=== PATIENT | male | born 1955 | race Caucasian/White ===

== ENCOUNTER 2022-05-17 22:11 | Inpatient (IN) ==
[2022-05-17 22:42] LABS: Basophils # (auto) 0.05 K/uL (0-0.2); Basophils % (auto) 0.7 %; Eosinophils # (auto) 0.66 K/uL (0-0.50); Eosinophils % (auto) 9.4 %; Hematocrit (blood only) 42.9 % (40.1-51.0); Hemoglobin 14.6 g/dl (14.0-18.0); Immature Granulocytes # (auto) 0.01 K/uL (0.00-0.02); Immature Granulocytes % (auto) 0.1 %; Lymphocytes # (auto) 2.74 K/uL (1.2-3.4); Mean Corpuscular Hemoglobin 31.6 pg (25.0-34.0); Mean Corpuscular Volume 92.9 fL (80.0-100.0); Mean Platelet Volume 9.9 fL (9.4-12.4); Monocytes # (auto) 0.55 K/uL (0.24-0.82); Monocytes % (auto) 7.8 %; Neutrophils # (auto) 3.02 K/uL (1.4-6.5); Platelet Count 282 K/uL (130-400); RDW Coefficient of Variation 13.8 % (11.5-14.5); Red Blood Count 4.62 M/uL (4.63-6.08); White Blood Count 7.03 K/ul (4.8-10.8)
[2022-05-17] MEDS ORDERED: ASPIRIN 81 MG CHEW PO STA (22:57)
[2022-05-17] MEDS ORDERED: NITROGLYCERIN 2% OINTMENT 30GM TUBE EXT ONE (22:57)
--- NOTE | 2022-05-17 23:03 | Emergency Department Note ---
History of Present Illness General Chief complaint: Cardiac Assessment Stated complaint: CHEST TIGHTNESS/SHORT OF BREATH Time Seen by Provider: 05/17/22 22:38 History of Present Illness This is a 66-year-old male presenting to the emergency department for evaluation of chest tightness and heaviness of his arms x2 episodes the past 2 days. The patient believes himself to be usually healthy and does not typically follow with his doctors office. He did follow-up with them about a week ago when he had some URI symptoms and was started on Zithromax. He was also found to have some essential hypertension and started on low-dose lisinopril. He is taking his medications as prescribed, but when he laid down tonight he states that he developed new onset of symptoms. The patient does not report any known personal history of cardiac disease. When he was at his primary care physician's office this week he was noted to have an abnormal EKG and they are scheduling him an outpatient echo. The patient brother had a heart attack in his 50s, and the patient's mother had a fatal heart attack at 66 years old. The patient does not have any recent travel history. No fevers or chills. He does arrive via EMS. Home Medications Medication Instructions Recorded Confirmed Type ascorbic acid (vitamin C) 1,000 mg 1,000 mg PO Q12H 04/10/19 05/06/19 History tablet,extended release cephalexin 500 mg capsule 500 mg PO TID 7 days #21 caps 04/10/19 05/06/19 Rx finasteride 5 mg tablet 5 mg PO DAILY 04/10/19 05/06/19 History ibuprofen 200 mg tablet 200 mg PO Q6H PRN 04/10/19 05/06/19 History oxybutynin chloride 10 mg 10 mg PO DAILY 04/10/19 05/06/19 History tablet,extended release 24 hr psyllium seed (sugar) oral powder 1 tbs PO DAILY 04/10/19 05/06/19 History (Metamucil [place] oral powder) triamcinolone acetonide 0.1 % 1 appln topical BID #80 grams 04/10/19 05/06/19 Rx topical ointment Allergies Allergy/AdvReac Type Severity Reaction Status Date / Time No Known Allergies Allergy Verified 05/06/19 09:56 Past Med/Surg History Medical History Family history of heart disease Hypertension Surgical History No significant past surgical history Family History Other Colorectal cancer Diabetes Hypertension Social History Smoking Status: Former smoker Tobacco Type: Cigarettes Hx Alcohol Use: No Hx Substance Use: No Preferred Language: Japanese 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 Beliefs That Will Affect Care: None Current Living Situation: Alone Current Living Situation Comment: [facility] Feels Safe at Home: Yes Assistive Devices: Cane, Denture - Upper, Denture - Lower, Glasses and Walker Review of Systems A total of 10 systems reviewed and were otherwise negative Physical Exam Vital Signs Vital Signs - 24 hr 05/17/22 22:18 05/17/22 22:25 05/17/22 22:26 Temperature 36.9 C Temperature Source Oral Pulse Rate 75 Pulse Rate [Apical] Pulse Rate from SpO2 Sensor Pulse Rhythm [Apical] Pulse Strength [Apical] Respiratory Rate 18 Respiratory Effort / Characteristics Non-Labored Spontaneous Respiratory Depth Normal Respiratory Pattern Blood Pressure 149/88 H Blood Pressure [Left Arm] Blood Pressure Mean 108 Blood Pressure Mean [Left Arm] Blood Pressure Position [Left Arm] Pulse Oximetry 98 99 99 Oxygen Delivery Method Room Air Room Air Room Air Sepsis Recent Fever Within 48 Hours No Sepsis New/Unexplained Change in Mental Status No Sepsis Action Taken by Nursing No Action Required 05/17/22 23:21 05/18/22 00:00 05/18/22 00:30 Temperature 36.7 C Temperature Source Oral Pulse Rate 81 Pulse Rate [Apical] 77 84 Pulse Rate from SpO2 Sensor Pulse Rhythm [Apical] Regular Pulse Strength [Apical] Normal Respiratory Rate 20 18 20 Respiratory Effort / Characteristics Non-Labored Spontaneous Non-Labored Spontaneous Respiratory Depth Normal Normal Respiratory Pattern Regular Regular Blood Pressure 148/89 H Blood Pressure [Left Arm] 154/97 H 112/75 Blood Pressure Mean 108 Blood Pressure Mean [Left Arm] 116 87 Blood Pressure Position [Left Arm] Sitting Semi-fowlers Pulse Oximetry 98 98 95 Oxygen Delivery Method Room Air Room Air Room Air Sepsis Recent Fever Within 48 Hours Sepsis New/Unexplained Change in Mental Status Sepsis Action Taken by Nursing 05/17/22 22:30 05/17/22 22:45 05/17/22 23:00 Temperature Temperature Source Pulse Rate 79 70 75 Pulse Rate [Apical] Pulse Rate from SpO2 Sensor 78 71 76 Pulse Rhythm [Apical] Pulse Strength [Apical] Respiratory Rate 17 16 13 Respiratory Effort / Characteristics Respiratory Depth Respiratory Pattern Blood Pressure Blood Pressure [Left Arm] Blood Pressure Mean Blood Pressure Mean [Left Arm] Blood Pressure Position [Left Arm] Pulse Oximetry 99 98 96 Oxygen Delivery Method Sepsis Recent Fever Within 48 Hours Sepsis New/Unexplained Change in Mental Status Sepsis Action Taken by Nursing 05/17/22 23:15 05/17/22 23:21 05/17/22 23:21 Temperature Temperature Source Pulse Rate 71 79 Pulse Rate [Apical] Pulse Rate from SpO2 Sensor 72 80 Pulse Rhythm [Apical] Pulse Strength [Apical] Respiratory Rate 18 19 Respiratory Effort / Characteristics Respiratory Depth Respiratory Pattern Blood Pressure 154/97 H Blood Pressure [Left Arm] Blood Pressure Mean 116 Blood Pressure Mean [Left Arm] Blood Pressure Position [Left Arm] Pulse Oximetry 98 98 Oxygen Delivery Method Sepsis Recent Fever Within 48 Hours Sepsis New/Unexplained Change in Mental Status Sepsis Action Taken by Nursing 05/17/22 23:30 05/17/22 23:30 05/17/22 23:45 Temperature Temperature Source Pulse Rate 75 93 H Pulse Rate [Apical] Pulse Rate from SpO2 Sensor 75 93 H Pulse Rhythm [Apical] Pulse Strength [Apical] Respiratory Rate 18 21 Respiratory Effort / Characteristics Respiratory Depth Respiratory Pattern Blood Pressure 150/92 H Blood Pressure [Left Arm] Blood Pressure Mean 111 Blood Pressure Mean [Left Arm] Blood Pressure Position [Left Arm] Pulse Oximetry 98 98 Oxygen Delivery Method Sepsis Recent Fever Within 48 Hours Sepsis New/Unexplained Change in Mental Status Sepsis Action Taken by Nursing 05/18/22 00:00 05/18/22 00:00 Temperature Temperature Source Pulse Rate 79 Pulse Rate [Apical] Pulse Rate from SpO2 Sensor 80 Pulse Rhythm [Apical] Pulse Strength [Apical] Respiratory Rate 20 Respiratory Effort / Characteristics Respiratory Depth Respiratory Pattern Blood Pressure 148/89 H Blood Pressure [Left Arm] Blood Pressure Mean 108 Blood Pressure Mean [Left Arm] Blood Pressure Position [Left Arm] Pulse Oximetry 98 Oxygen Delivery Method Sepsis Recent Fever Within 48 Hours Sepsis New/Unexplained Change in Mental Status Sepsis Action Taken by Nursing VITALS: Vitals are noted on the nurse's note and reviewed by myself. Vital signs stable. GENERAL: Well-developed, well-nourished, white male, who is in no acute distress and resting comfortably. Patient is cooperative with the examination. HEAD: Normocephalic atraumatic. NECK: Supple without nuchal rigidity. No lymphadenopathy. No thyromegaly. Cervical spine is nontender. HEART: Regular rate and rhythm without murmurs gallops or rubs. LUNGS: Clear to auscultation bilaterally without wheezes, rales or rhonchi. No retractions or accessory muscle use. ABDOMEN: Positive normal bowel sounds x 4. Soft, nontender, without masses or organomegaly. No guarding or rebound tenderness. MUSCULOSKELETAL: No muscle atrophy, erythema, or edema noted. Full range of motion in all extremities. NEURO: Patient was alert and oriented to person place and time. CN II through XII grossly intact. Course Administered Medications Sodium Chloride (Nss 1000ml) 1,000 mls @ 75 mls/hr IV .[id number] [facility] Stop: 06/17/22 00:44 Last Admin: 05/18/22 02:58 Dose: 75 mls/hr Documented By: DARA Discontinued Medications Aspirin (Aspirin 81 Mg Chew) 324 mg PO NOW STA Stop: 05/17/22 22:58 Last Admin: 05/17/22 23:18 Dose: 324 mg Documented By: LINDA Fentanyl Citrate (Fentanyl Citrate 100 Mcg/2 Ml Vial) Confirm Administered Dose 100 mcg .ROUTE .STK-MED ONE Stop: 05/17/22 23:59 Last Increment: 05/18/22 00:42 Dose: 25 mcg Documented By: [facility] Heparin Sodium (Porcine) (Heparin (Porcine) 1000 Unit/Ml 10 Ml (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 Mold 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 Use Only)) Confirm Administered Dose 20,000 units .ROUTE .STK-MED ONE Stop: 05/17/22 23:59 Last Admin: 05/18/22 00:42 Dose: 5,000 units Documented By: C Heparin Sodium/Dextrose (Heparin 13797 Unit/500 Ml D5w) Confirm Administered Dose 25,000 units IV .STK-MED ONE Stop: 05/18/22 00:33 Last Admin: 05/18/22 02:57 Dose: Not Given Documented By: DARA Heparin Sodium/Sodium Chloride (Heparin In Nss Infusion 1000 Unit/500 Ml (2 U/Ml) Bag) Confirm Administered Dose 6,000 units IV .STK-MED ONE Stop: 05/17/22 23:59 Last Admin: 05/18/22 00:43 Dose: 6,000 units Documented By: SUZETTE Lidocaine HCl (Lidocaine 1% Local 20 Ml Vial) Confirm Administered Dose 80 ml .ROUTE .STK-MED ONE Stop: 05/18/22 00:45 Last Admin: 05/18/22 02:57 Dose: Not Given Documented By: DARA Midazolam HCl (Midazolam Hcl 1 Mg/Ml 2ml Vial) Confirm Administered Dose 4 mg .ROUTE .STK-MED ONE Stop: 05/17/22 23:59 Last Increment: 05/18/22 00:10 Dose: 1 mg Documented By: JESSICA Nicardipine HCl (Nicardipine Hcl Inj 2.5 Mg/Ml 10 Ml Amp) Confirm Administered Dose 50 mg .ROUTE .STK-MED ONE Stop: 05/17/22 23:59 Last Admin: 05/18/22 00:44 Dose: 50 mg Documented By: SUZETTE Nitroglycerin (Nitroglycerin 2% Ointment 30gm Tube) 1 inch EXT NOW ONE Stop: 05/17/22 22:58 Last Admin: 05/17/22 23:18 Dose: 1 inch Documented By: LINDA Nitroglycerin/Dextrose (Nitroglycerin/D5w 100mcg/Ml 20ml Syr) Confirm Administered Dose 4,000 mcg .ROUTE .STK-MED ONE Stop: 05/18/22 00:00 Last Admin: 05/18/22 00:44 Dose: 4,000 mcg Documented By: SUZETTE Nitroglycerin/Dextrose (Nitroglycerin/D5w 100 Mcg/Ml Btl) Confirm Administered Dose 25 mg .ROUTE .STK-MED ONE Stop: 05/18/22 00:33 Last Admin: 05/18/22 02:57 Dose: Not Given Documented By: DARA Critical Care Time I have personally spent greater than 30 minutes of critical care time in the direct management of this patient. This includes bedside care, interpretation of diagnostic studies, and testing, discussion with consultants, patient, and family members, and other required patient management activities. This 30 minutes is in excess of all separately billable procedures. Medical Decision Making Differential Diagnosis Differential diagnosis includes, but is not limited to: Myocardial infarction, dysrhythmia, pericarditis, pneumothorax, aortic aneurysm/dissection, DVT/PE, anxiety, GERD, PUD, electrolyte imbalance, thyroid disorder, pneumonia, bronchitis, pancreatitis, and others Laboratory Data Result diagrams: 05/18/22 02:16 05/18/22 02:16 Lab Results 05/17/22 05/17/22 05/17/22 Range/Units 22:21 22:21 22:33 WBC 7.03 (4.8-10.8) K/ul RBC 4.62 L (4.63-6.08) M/uL Hgb 14.6 (14.0-18.0) g/dl Hct 42.9 (40.1-51.0) % MCV 92.9 (80.0-100.0) fL MCH 31.6 (25.0-34.0) pg MCHC 34.0 (32.0-36.0) g/dL RDW Std Deviation 47.0 H (36.4-46.3) fL RDW Coeff of Nayla 13.8 (11.5-14.5) % Plt Count 282 (130-400) K/uL MPV 9.9 (9.4-12.4) fL Immature Gran % (Auto) 0.1 % Neut % (Auto) 43.0 % Lymph % (Auto) 39.0 % Pierce % (Auto) 7.8 % Eos % (Auto) 9.4 % Baso % (Auto) 0.7 % Neut # (Auto) 3.02 (1.4-6.5) K/uL Lymph # (Auto) 2.74 (1.2-3.4) K/uL Pierce # (Auto) 0.55 (0.24-0.82) K/uL Eos # (Auto) 0.66 H (0-0.50) K/uL Baso # (Auto) 0.05 (0-0.2) K/uL Immature Gran # (Auto) 0.01 (0.00-0.02) K/uL Sodium 138 (136-145) mmol/L Potassium 3.9 (3.5-5.1) mmol/L Chloride 106 (98-107) mmol/L Carbon Dioxide 26 (21-32) mmol/L Anion Gap 6 (3-11) BUN 17 (6-23) mg/dl Creatinine 0.73 (0.6-1.4) mg/dl Est Cr Clr Drug Dosing 105.6 ml/min Est GFR ( Amer) 113.6 ml/min Est GFR (Non-Af Amer) 98.0 ml/min BUN/Creatinine Ratio 23.3 H (10-20) Glucose 99 (70-99(Fasting)) mg/dl Calcium 9.3 (8.5-10.1) mg/dl Total Bilirubin 0.4 (0.2-1.0) mg/dl AST 16 (13-39) U/L ALT 10 (7-52) U/L Alkaline Phosphatase 69 (34-104) U/L Troponin I High Sens 325.6 H* (0-20) pg/ml Total Protein 7.0 (6.0-8.3) gm/dl Albumin 4.1 (3.4-5.0) gm/dl Globulin 2.9 (2.5-4.0) gm/dl Albumin/Globulin Ratio 1.4 (0.9-2) Lipase 22 (11-82) U/L SARS-CoV-2, RNA, NAAT NEGATIVE (NEGATIVE) ECG Data Attestation: I personally reviewed and interpreted this ECG as follows: Indication: + other (Chest tightness) Additional Comments: EKG #1: 17-MAY-2022 22:16:23 Normal sinus rhythm @78 bpm Possible Inferior infarct , age undetermined T wave depression in v3, v4, v5, consider anterior ischemia No previous ECGs available EKG #2: 17-MAY-2022 23:33:40 Normal sinus rhythm @79 bpm Anterior injury pattern ACUTE [place] / STEMI Acute ST elevation in v2, v3, and v4 new from first EKG MDM Narrative Physical exam and history were performed. Nursing notes, EMR, and Medication List were personally reviewed. No social concerns were identified as barriers to patients care. Patient appears to have chest tightness and heaviness in his bilateral arms bringing him to the ER. He arrives via EMS and appears hemodynamically stable on arrival. EKG was performed and does show some lateral depression without acute ST elevation. IV access was established and labs were obtained. The patient was given aspirin and Nitropaste was applied. Chest x-ray was performed. An order was placed for continuous cardiac monitoring. The monitor shows a rate of 78 with normal sinus rhythm. The patient's blood work is as above and was reviewed. He does not have a significantly elevated white blood cell count, gross anemia, bandemia, or significant electrolyte imbalance. Transaminases are not diagnostic. Initial troponin is elevated at over 300. Covid is negative. The patient did have change in his rhythm strip about 75 minutes into his ER stay. Repeat EKG was performed, and now shows an acute ST elevation [place]. Case was discussed with my attending, Dr. Qureshi, who remained involved in care decision making throughout the patient's course. We did evaluate the patient at bedside who does not have significant pain, but continues to describe some mild chest tightness although this is much better than earlier. Heart alert was called due to his evolving EKG and ST elevation findings. The patient remained in stable condition until interventional cardiology could arrive at bedside. Patient was discharged to the cardiac catheterization lab. Please see the cardiology team dictations for further patient course, plan, disposition. The chart was completed utilizing [employer] Speech Voice Recognition Software. Gr ammatical errors, random word insertions, pronoun errors, and incomplete sentences are an occasional consequence of this system due to software limitations, ambient noise, and hardware issues. Any formal questions or concerns about the content, text, or information contained within the body of this dictation should be directly addressed to the provider for clarification. . Impression & Plan ST elevation [place] (STEMI), Tightness in chest, Elevated troponin Discharge Plan Visit Data Chief Complaint: Cardiac Assessment Stated Complaint: CHEST TIGHTNESS/SHORT OF BREATH ED Provider: John Qureshi ED Midlevel Provider: Bo De La Cruz Discharge Problem: ST elevation [place] (STEMI), Tightness in chest, Elevated troponin Patient Disposition: Admitted As Inpatient Discharge Instructions Interventions: ED Discharge Assessment Last Done: 05/18/22 00:08
[2022-05-17 23:09] LABS: Albumin Globulin Ratio 1.4 (0.9-2); Albumin Level 4.1 gm/dl (3.4-5.0); BUN Creatinine Ratio 23.3 (10-20); Bilirubin,Total 0.4 mg/dl (0.2-1.0); Calcium 9.3 mg/dl (8.5-10.1); Creatinine Clr Calc Pharmacy 105.6 ml/min; Est GFR (African American) 113.6 ml/min; Globulin 2.9 gm/dl (2.5-4.0); Potassium 3.9 mmol/L (3.5-5.1)
[2022-05-17 23:14] LABS: Troponin I High Sensitivity 325.6 pg/ml (0-20)
--- NOTE | 2022-05-17 23:46 | Emergency Department Note ---
ED Visit Note Physician Evaluation Note: Patient was seen in conjunction with the midlevel provider. Please see the midlevel provider note for full details of the patient's visit. I have personally evaluated and examined this patient. Patient presented to the ED with nonspecific abnormal sensation in his chest, he describes this to me as a heaviness that he experienced multiple times over the past several days including this evening. He contacted EMS. EKG initially on arrival does not show any evidence of ST elevation [place], repeat EKG does show evidence of ST elevation in leads V2 and V3. Heart alert therefore was called by the physician instruction assistant principal at this time. On my assessment shortly after this the patient is resting comfortably in bed, states he currently does not have any chest pain. He was given aspirin and Nitro paste. Patient was transferred to the cardiac catheterization lab in stable condition for further management. I agree with assessment and plan of MICHAEL Esteban DO .
[2022-05-17] MEDS ORDERED: HEPARIN (PORCINE) 1000 UNIT/ML 10 ML (CATH LAB USE ONLY) ONE (23:58)
[2022-05-17] MEDS ORDERED: niCARdipine HCL INJ 2.5 MG/ML 10 ML AMP ONE (23:58)
[2022-05-17] MEDS ORDERED: fentaNYL citrate 100 MCG/2 ML VIAL ONE (23:58)
[2022-05-17] MEDS ORDERED: MIDAZOLAM HCL 1 MG/ML 2ML VIAL ONE (23:58)
[2022-05-17] MEDS ORDERED: NITROGLYCERIN/D5W 100MCG/ML 20ML SYR ONE (23:59)
[2022-05-18] MEDS ORDERED: NITROGLYCERIN/D5W 100 MCG/ML BTL ONE (00:32)
[2022-05-18] MEDS ORDERED: HEPARIN 25000 UNIT/500 ML D5W IV ONE (00:32)
[2022-05-18] MEDS ORDERED: LIDOCAINE 1% LOCAL 20 ML VIAL ONE (00:44)
[2022-05-18] MEDS ORDERED: SODIUM CHLORIDE 0.9% 1000ML 1,000 ML IV SCH (00:45)
--- NOTE | 2022-05-18 00:55 | Pre Anesthesia Assessment ---
Date of Service May 18, 2022 Pre Sedation Assessment Vital Signs Temp Pulse Pulse Resp BP BP Pulse Ox 05/18/22 00:00 81 18 148/89 H 98 05/17/22 23:21 77 20 154/97 H 98 05/17/22 22:26 99 05/17/22 22:25 99 05/17/22 22:18 36.9 C 75 18 149/88 H 98 O2 Del Method 05/18/22 00:00 Room Air 05/17/22 23:21 Room Air 05/17/22 22:26 Room Air 05/17/22 22:25 Room Air 05/17/22 22:18 Room Air Cardiovascular RRR, no murmur, no edema Respiratory normal respiratory effort, lungs clear to auscultation Pre-Sedation Airway Assessment Smoking Status: Former smoker Mallampati class 3 ASA: 4 Notes The planned sedation has been discussed with the patient. Informed Consent was obtained. I have identified the patient, determined the appropriateness of sedation and have assessed the patient immediately prior to the procedure. All medicine(s) and interventions are by my order.
--- NOTE | 2022-05-18 01:24 | Cardiac Catheterization ---
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 Cardiac Status Clinical evaluation leading to the procedure CAD Presenation: STEMI Anginal Classification: CCS IV Heart Failure: No Cardiogenic Shock within 24 Hours: No Cardiac Arrest within 24 Hours: No Imaging Studies Past 6 Months: No STEMI OR Non-STEMI Symptom Onset Date: 05/16/22 Coronary Anatomy Dominant: Right Left Main (% Stenosis): Distal (20%) LAD (% Stenosis): Proximal (40%) and Distal (90%, 95%, 99%) D1 (% Stenosis): Ostial (99%) Circumflex (% Stenosis): Proximal (80 to 90%) and Mid (50) OM1 (% Stenosis): Ostial (100) OM2 (% Stenosis): Normal (Diffuse severe up to 95%) RCA (% Stenosis): Proximal (Diffuse up to 95%) and Mid (Diffuse severe than 100% occluded) Ramus (% Stenosis): Proximal (80 to 90%) Diagnostic Physicians Name: Bo Gómez MD, PhD Closure Device Percutaneous Entry Location: Radial Closure Device: Radial Band Recommendations: CABG Cardiac Cath Procedure Full Procedure Date May 18, 2022 Pre-Procedure Diagnosis Pre-Procedure Diagnosis: STEMI AUC Score AUC Score: 09 Post-Procedure Diagnosis Post-Procedure Diagnosis: Severe CAD Procedure(s) Performed Procedure(s) Performed: Coronary Angiography Flux Tube Attendant Bo Gómez MD, PhD Estimated Blood Loss Estimated Blood Loss: 5 ml Summary of Findings Brief description: Patient was brought to the cardiac catheterization suite where he was shaved and prepped in a sterile fashion. Sedated using IV Versed and fentanyl. Soft tissues of the right wrist were anesthetized using 2 mL of 1% Xylocaine. The right radial artery was accessed using a modified Seldinger technique and a 6 Q[place]ari radial artery glide sheath was placed. Patient was provided anticoagulation with IV heparin and antispasmodics including nicardipine and nitroglycerin. All catheters were advanced and exchanged over a 0.035 J-tip wire. Left coronary angiography performed in orthogonal views with a 5 Q[place]ari Galena 4 diagnostic catheter and a 5 Q[place]ari JL 3.5 diagnostic catheter Right coronary angiography was performed in orthogonal views with a 5 [place] 4 diagnostic catheter. Diagnostic catheters were removed. Radial artery sheath was removed. Hemostasis was obtained using a TR band. Patient had no symptoms and was hemodynamically stable. He was subsequently admitted to the intensive care unit for further work-up and management. Coronary angiography findings: LMT: Large-caliber vessel which trifurcates into LAD, circumflex, and ramus. He has diffuse mild disease with up to 20% distal stenosis. LAD: This is large caliber and transapical. Proximal segment with diffuse up to 40% narrowing. Provides several septal branches and a medium to large caliber first diagonal. The first diagonal has ostial 99% stenosis and severe diffuse disease. The mid LAD has diffuse mild disease. The early distal LAD has a focal 90% stenosis followed by a 95% stenosis. The apical portion of the LAD has severe diffuse disease with up to 99% stenosis. Left circumflex: This is large caliber and nondominant. Proximal segment travels in the AV groove where there is severe 80 to 90% stenosis. The first obtuse marginal is relatively small in caliber and branching. It is occluded. The mid AV groove vessel remains large and has diffuse up to 50% narrowing. It then gives a large atrial branch. It appears to become a trifurcating large caliber OM 2. This vessel has diffuse disease with up to 95% narrowing focally in the 3 branch vessels. Ramus: This is a large caliber branching vessel which reaches near the apex. The proximal segment has a long 80 to 90% narrowing with the branch vessels after this having mild disease. RCA: Large-caliber dominant vessel. Proximal segment with severe diffuse disease of about 95% then the mid segment has continued severe disease before it is occluded 100%. The PDA and posterolateral branches appear to be along. They fill via left to right collateralization. Summary: Severe multivessel coronary artery disease. There do not appear to be any acute thrombotic lesions. Patient will be admitted to the intensive care unit to initiate heparin drip and nitroglycerin. When hemodynamically stabilized we will initiate guideline directed medical therapy for secondary prevention of coronary artery disease to include; low-dose aspirin, high intensity statin therapy, beta-gregory, plus or minus SIMON inhibitor/ARB. We will make referral to tertiary center regarding coronary artery bypass grafting versus complex multivessel staged PCI (heart team evaluation). Hemodynamics Rest Ao:: 119/75 mmHg, mean 79 mmHg Final Ao: 111/76 mmHg, mean 94 mmHg LV: Not performed Recommendations Recommendations: CABG Radiation Exposure (mGy) 1091 mGy, fluoroscopy time 2.0 minutes Contrast (mls) 90 mL Anesthesia 1 mg IV Versed, 25 mcg IV fentanyl Procedural Complication(s) None Disposition ICU I attest to the content of the Intraoperative Record and any orders documented therein. Any exceptions are noted below. [facility] Card Cath Procedure Codes Cardiac Catheterization Procedure 1: Cardiovascular Cath Procedures: 36351 Coronaries Moderate Sedation Procedure 1: Sedation/Anesthesia: 94670 Mod Sedation by the same physician;Init15 Min Child Age 5 & Up (13 minutes) PG Care Time/CCT Total # of Minutes Spent Total Time Spent with Patient: Total time spent is greater than 50% in coordination of care (as documented) at patient's floor/unit and/or counseling patient:
--- NOTE | 2022-05-18 01:30 | Critical Care Consultation ---
Date of Consultation May 18, 2022 Assessment & Plan (1) ST elevation RI (STEMI): Impression: 66-year-old male presents to the ICU following STEMI, status post heart catheterization with no intervention and found to have severe multivessel disease. Currently medically managing and will need transfer to tertiary center for possible CABG versus complex multivessel PCI. Neuro - [facility] ICU: Negative Cardiac - STEMIpatient with ST elevation on EKG in leads V1 to V4 on initial presentation with dyspnea, and pressure on chest. -Status post heart catheter he was found to have multivessel disease and will need work-up for CABG at tertiary center. -No PCI in favor of medical management. Currently on heparin drip and Nitropaste -Trend troponins for peak -Daily EKG -Follow-up echo -Cardiology consulting, appreciate recommendations -Continue ASA, statin, MTP -Continuous monitor on telemetry HTNstarting on MTP. Currently normotensive. Monitor Respiratory - No history of pulmonary disease, currently maintaining oxygen saturation on room air. Continuous monitoring pulse ox GI - Heart healthy diet RENAL/LYTES - Creatinine within normal limits. Monitor routine BMPs and maximize electrolytes - Strict I's and O's ENDO - No history of diabetes or thyroid disease, hemoglobin A1c pending. ICR vascular surgical HEME - H&H stable, monitor routine CBC ID - No negation for infectious process at this time LINES/IV ACCESS - Peripheral IVs DVT PROPHYLAXIS - SCDs, on heparin drip Thank you for allowing us to participate in the care of this patient. Please refer to my attending physician's documentation for any further recommendations. (2) Hypertension: (3) Atherogenic dyslipidemia: (4) Coronary artery disease: (5) Elevated troponin: History of Present Illness Attending Physician: Bo Gómez MD, PhD History of Present Illness Patient is a 66-year-old male who presented to the emergency department earlier as a heart alert. Patient reported shortness of breath intermittently along with squeezing in his arms and pressure in his chest over the past few days. This became significantly worse this evening and the patient called EMS. EKG demonstrated ST elevations in V1 through V4. Patient underwent cardiac catheterization which demonstrated severe multivessel coronary artery disease with no acute appearing lesions, and he did not undergo intervention. Patient's chest pain has since resolved and he has admitted to the ICU undergoing medical management with heparin drip. Plan for patient to be referred to tertiary center for CABG versus complex multivessel PCI per cardiology. On arrival to the ICU the patient is alert and oriented and is currently asymptomatic. He is hemodynamically stable and on room air. He does report having intermittent shortness of breath and pressure in his left and right arm along with some chest pain previously however this is resolved. He denies any recent illnesses, fevers, congestion, headache, syncope, cough or wheezing, abdominal pain, nausea vomiting or diarrhea, diaphoresis, swelling in hands or feet, changes in urinary frequency or hesitancy. Plan for patient to be admitt ed to ICU for close observation at this time. Allergies Allergy/AdvReac Type Severity Reaction Status Date / Time No Known Allergies Allergy Verified 05/06/19 09:56 Home Medications Medication Instructions Recorded Confirmed Type ascorbic acid (vitamin C) 1,000 mg 1,000 mg PO Q12H 04/10/19 05/06/19 History tablet,extended release cephalexin 500 mg capsule 500 mg PO TID 7 days #21 caps 04/10/19 05/06/19 Rx finasteride 5 mg tablet 5 mg PO DAILY 04/10/19 05/06/19 History ibuprofen 200 mg tablet 200 mg PO Q6H PRN 04/10/19 05/06/19 History oxybutynin chloride 10 mg 10 mg PO DAILY 04/10/19 05/06/19 History tablet,extended release 24 hr psyllium seed (sugar) oral powder 1 tbs PO DAILY 04/10/19 05/06/19 History (Metamucil [place] oral powder) triamcinolone acetonide 0.1 % 1 appln topical BID #80 grams 04/10/19 05/06/19 Rx topical ointment Patient History Medical History Family history of heart disease Hypertension Surgical History No significant past surgical history Family History Other Colorectal cancer Diabetes Hypertension Social History Smoking Status: Former smoker Tobacco Type: Cigarettes Hx Alcohol Use: No Hx Substance Use: No Preferred Language: Armenian 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 Ability: 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 Beliefs That Will Affect Care: None Current Living Situation: Alone Current Living Situation Comment: [facility] Feels Safe at Home: Yes Assistive Devices: Cane Review of Systems Review of Systems: All systems reviewed & are unremarkable except as noted in HPI & below Physical Exam Constitutional: WD/WN, vitals as above cooperative and comfortable; no acute distress Eyes: PERRL, conjunctivae normal, anicteric sclerae ENMT: external ear and nose normal, oropharynx normal Neck: trachea midline, no thyromegaly Respiratory: normal respiratory effort, lungs clear to auscultation Cardiovascular: RRR, no murmur, no edema Heart Sounds: normal S1 and normal S2 Vessels: no JVD Extremities: no edema Gastrointestinal (Abdomen): normal bowel sounds, soft, nontender, no hepatosplenomegaly Musculoskeletal: no cyanosis or clubbing, extremities motor strength 5/5 Skin: no rashes, warm and dry Neurologic: PERRL, EOMI, accommodation nl, no face palsy, no dysarthria Psychiatric: A+Ox3, euthymic affect Results & Data Results & Data ([facility]) Vital Signs (Past 12 Hours) Vital Signs Temp Pulse Pulse Resp BP BP Pulse Ox 05/18/22 01:00 36.9 C 82 19 134/80 96 05/18/22 00:00 81 18 148/89 H 98 05/17/22 23:21 77 20 154/97 H 98 05/17/22 22:26 99 05/17/22 22:25 99 05/17/22 22:18 36.9 C 75 18 149/88 H 98 O2 Del Method 05/18/22 01:00 Room Air 05/18/22 00:00 Room Air 05/17/22 23:21 Room Air 05/17/22 22:26 Room Air 05/17/22 22:25 Room Air 05/17/22 22:18 Room Air Coding Level of Care Code 15634 Inpt Consult Level [address] elevation RI (STEMI) I21.3 Hypertension I10 Atherogenic dyslipidemia E78.5 Coronary artery disease I25.10 Elevated troponin R77.8
[2022-05-18] MEDS ORDERED: HEPARIN SODIUM/DEXTROSE 25,000 UNITS/500 ML BAG IV SCH (01:45)
--- NOTE | 2022-05-18 01:46 | Cardiology Consultation ---
Date of Consultation May 18, 2022 Assessment & Plan (1) ST elevation NE (STEMI): Patient has severe multivessel coronary disease. The coronary angiography demonstrates severe disease near the apex in the LAD. The EKG changes show ST elevations corresponding to the LAD disease. However, these do not appear to be acute lesions and I suspect that he may have akinesis and/or aneurysmal LV apex which could cause the ST elevations with an absence of reciprocal ST depressions. We do plan an echocardiogram to investigate further. For now, we will treat medically with heparin drip, aspirin, and nitroglycerin as needed to relieve pain. His clinical presentation was rapidly progressive/unstable and sh ould he decompensate he could quickly become critically ill. Therefore, I feel intensive care unit management is appropriate at this time. (2) Hypertension: Blood pressure was initially low normal. Currently slightly improved. We are starting with nitroglycerin to control any recurrence of pain. After that we will initiate guideline directed medical therapy for secondary prevention of coronary disease as described below which will include antihypertensives. (3) Atherogenic dyslipidemia: Patient has severe multivessel coronary disease. He has very limited medical history but I suspect that he does not regularly follow with a physician. He may in fact have occult diabetes or other risk factors for coronary disease. In any case, the coronary disease places him at "high risk". Under current guidelines he is therefore recommended for high intensity statin therapy. We will obtain a baseline LDL and we will target reduction of that LDL number by 50% or more. We will also initiate a atorvastatin 40 mg daily. (4) Coronary artery disease: Severe multivessel disease. Suspect he has had milder symptoms for quite some time. Also suspect that his EF may be significantly reduced. His troponin was elevated but there are no acute lesions. We will trend his troponin. Ultimate revascularization will be either coronary artery bypass grafting or complex staged multivessel PCI. This will require referral to tertiary center with cardiac surgery and interventional cardiology services. We will initiate guide line directed medical therapy beginning with aspirin 81 mg daily, a atorvastatin 40 mg daily, and then metoprolol as tolerated by blood pressure and heart rate. If his ejection fraction is reduced as suspected and we will also recommend SIMON inhibitor/ARB/Entresto as tolerated by blood pressure. Plan ICU. Request transfer to tertiary center for CABG versus complex PCI. Complete work-up to include echocardiogram, identify additional risk factors and treat as appropriately. Adjust medications pending results and hopefully there will not be significant delay prior to transfer. History of Present Illness Reason for Consultation: Chest pain, ST elevations, positive troponin Attending Physician: Bo Gómez MD, PhD History of Present Illness 66-year-old gentleman without known prior cardiac history. He reports several weeks history of exertional shortness of breath and chest tightness. He reports that he had an EKG performed by his primary care provider which was "abnormal". She then ordered an echocardiogram which has not yet been performed. For the past few days he has noted squeezing in his arms, pressure across his chest, and dyspnea all occurring with exertion. Usually resolves with rest. However, became more severe this past evening and he decided to call EMS. An EKG was performed in the emergency department which demonstrated ST elevations in leads V1 through V4. There were no reciprocal ST segment depressions. He also had evidence of inferior Q waves suggestive of prior inferior infarction. He was treated by emergency department and on my arrival he was no longer having any symptoms. However, given the appearance of the EKG and the elevated troponin on blood work decision was made to proceed to the heart catheterization lab. Patient was provided full informed consent and he wished to proceed so that we could "fix him". Patient then underwent emergent cardiac catheterization demonstrating severe multi vessel coronary disease but without any acute appearing lesions. He had no chest pains and there were no ischemic EKG changes on the monitor. Therefore, decision was made to treat medically with plan for referral to tertiary center regarding coronary artery bypass grafting versus complex multivessel staged PCI. Patient admits to exertional chest pain, dyspnea, but denies syncope, near syncope, orthopnea, PND, racing heartbeat, palpitations, or edema. Allergies Allergy/AdvReac Type Severity Reaction Status Date / Time No Known Allergies Allergy Verified 05/06/19 09:56 Home Medications Medication Instructions Recorded Confirmed Type ascorbic acid (vitamin C) 1,000 mg 1,000 mg PO Q12H 04/10/19 05/06/19 History tablet,extended release cephalexin 500 mg capsule 500 mg PO TID 7 days #21 caps 04/10/19 05/06/19 Rx finasteride 5 mg tablet 5 mg PO DAILY 04/10/19 05/06/19 History ibuprofen 200 mg tablet 200 mg PO Q6H PRN 04/10/19 05/06/19 History oxybutynin chloride 10 mg 10 mg PO DAILY 04/10/19 05/06/19 History tablet,extended release 24 hr psyllium seed (sugar) oral powder 1 tbs PO DAILY 04/10/19 05/06/19 History (Metamucil [place] oral powder) triamcinolone acetonide 0.1 % 1 appln topical BID #80 grams 04/10/19 05/06/19 Rx topical ointment Patient History Medical History Family history of heart disease Hypertension Surgical History No significant past surgical history Family History Other Colorectal cancer Diabetes Hypertension Social History Smoking Status: Former smoker Tobacco Type: Cigarettes Hx Alcohol Use: No Hx Substance Use: No Preferred Language: Pashto 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 Ability: Effective Hand Tapper Required: No Beliefs That Will Affect Care: None Current Living Situation: Alone Current Living Situation Comment: [facility] Feels Safe at Home: Yes Assistive Devices: Cane Review of Systems Review of Systems: Negative x12 point review except as per HPI Physical Exam Constitutional: Cachectic, no acute distress. Eyes: PERRL, conjunctivae normal, anicteric sclerae ENMT: Oral mucosa is pink, moist, and intact. Neck: No JVD Respiratory: Clear to auscultation bilaterally. No wheezing, rhonchi, or rales appreciated. Fair air movement. Cardiovascular: Regular rate and rhythm. S4 gallop. No rubs or murmurs appreciated. Gastrointestinal (Abdomen): Normal active bowel sounds. Nontender Musculoskeletal: no cyanosis or clubbing, extremities motor strength 5/5 Neurologic: Cognition intact. Speech is fluent. No focal deficits. Psychiatric: A+Ox3, euthymic affect Results & Data ([facility]) Vital Signs (Past 12 Hours) Vital Signs Temp Pulse Pulse Resp BP BP Pulse Ox 05/18/22 01:00 36.9 C 82 19 134/80 96 05/18/22 00:00 81 18 148/89 H 98 05/17/22 23:21 77 20 154/97 H 98 05/17/22 22:26 99 05/17/22 22:25 99 05/17/22 22:18 36.9 C 75 18 149/88 H 98 O2 Del Method 05/18/22 01:00 Room Air 05/18/22 00:00 Room Air 05/17/22 23:21 Room Air 05/17/22 22:26 Room Air 05/17/22 22:25 Room Air 05/17/22 22:18 Room Air PG Care Time/CCT Total # of Minutes Spent Total Time Spent with Patient: Total time spent is greater than 50% in coordination of care (as documented) at patient's floor/unit and/or counseling patient: Critical Care Time: Yes Total Critical Care Time: 60 60 minutes critical care time was spent in the examination, review of records, discussion with patient, formulation and implementation of a plan of care, and all associated documentation. This time is exclusive of the time spent for his procedure. [place] [address] Inpt Consult Level [address] New [address] elevation NE (STEMI) I21.3 Hypertension I10 Atherogenic dyslipidemia E78.5 Coronary artery disease I25.10 Additional Codes Critical Care Time - Critical Care Time: Yes ([id number])
--- NOTE | 2022-05-18 01:47 | Post Anesthesia Assessment ---
Date of Service May 18, 2022 Post Sedation Assessment Vital Signs Temp Pulse Pulse Resp BP BP Pulse Ox 05/18/22 00:30 36.7 C 84 20 112/75 95 05/18/22 01:00 36.9 C 82 19 134/80 96 05/18/22 00:00 81 18 148/89 H 98 05/17/22 23:21 77 20 154/97 H 98 05/17/22 22:26 99 05/17/22 22:25 99 05/17/22 22:18 36.9 C 75 18 149/88 H 98 O2 Del Method 05/18/22 00:30 Room Air 05/18/22 01:00 Room Air 05/18/22 00:00 Room Air 05/17/22 23:21 Room Air 05/17/22 22:26 Room Air 05/17/22 22:25 Room Air 05/17/22 22:18 Room Air Recovery Score Activity: Moves 4 extremities Respiration: Deep Breath/Cough Circulation: +/-20% PreAnes Value Consciousness: Fully Awake Oxygen Saturation: > 92% On Room Air Discharge Sedation Level of Care: Phase I Post Sedation Plan On clinical assessment, the patient appears to have tolerated the sedation without complications. Patient is recovering as anticipated. Patient will continue to be monitored by nursing and may be discharged when sedation discharge criteria are met per below protocol. Upon Completions of procedure up to 15 minutes continue every 5 minute vital signs and the P.A.R. score; then discharge to a Phase I or Fast Track to Phase II per the following guidelines: * Discharge Patient to appropriate Phase II area if PAR is 8 or greater or return to pre- procedure baseline. The post - procedure orders will be as directed. * If PAR score is less than 8 or not return to pre-procedure baseline then patient will follow Phase I monitoring till PAR is reached for Phase II. The Phase I may be done in procedure room or may call to secure a Phase I area. * If naloxone or flumazenil are used for reversal, hold in Phase I for continued monitoring from when last reversal dose was given for a minimum of 60 minutes or longer pending the nurse and/or physician discretion of patient condition before discharge to Phase II. Please call the Sedation Physician to re-evaluate and complete post-note for discharge to Phase II area. Do NOT discharge from procedure sedation or Phase 1 until post- sedation evaluation note is complete by procedure /sedation MD Sedation Discharge Instructions to be given to the patient at discharge to home. [facility] Procedure Codes (Charges) Indication for Procedure Indication for procedure: STEMI Sedation/Anesthesia Procedure 1: Sedation/Anesthesia: 96628 Mod Sedation by the same physician;Init15 Min Child Age 5 & Up Total Sedation Time (minutes): 13
[2022-05-18 02:37] LABS: Basophils # (auto) 0.06 K/uL (0-0.2); Basophils % (auto) 0.9 %; Eosinophils # (auto) 0.26 K/uL (0-0.50); Eosinophils % (auto) 3.9 %; Hematocrit (blood only) 39.4 % (40.1-51.0); Hemoglobin 13.7 g/dl (14.0-18.0); Immature Granulocytes # (auto) 0.01 K/uL (0.00-0.02); Immature Granulocytes % (auto) 0.1 %; Lymphocytes # (auto) 1.29 K/uL (1.2-3.4); Lymphocytes % (auto) 19.2 %; Mean Corpuscular Hemoglobin 31.9 pg (25.0-34.0); Mean Corpuscular Hgb Conc 34.8 g/dL (32.0-36.0); Mean Corpuscular Volume 91.6 fL (80.0-100.0); Mean Platelet Volume 9.4 fL (9.4-12.4); Monocytes # (auto) 0.43 K/uL (0.24-0.82); Monocytes % (auto) 6.4 %; Neutrophils # (auto) 4.67 K/uL (1.4-6.5); Neutrophils % (auto) 69.5 %; Platelet Count 265 K/uL (130-400); RDW Coefficient of Variation 13.8 % (11.5-14.5); RDW Standard Deviation 46.5 fL (36.4-46.3); White Blood Count 6.72 K/ul (4.8-10.8)
[2022-05-18 03:13] LABS: INR 1.1 (0.9-1.1); Partial Thromboplastin Ratio 2.2; Prothrombin Time 11.6 Seconds (9.0-12.0)
[2022-05-18 03:16] LABS: Partial Thromboplastin Time 60.4 Seconds (21.0-31.0)
[2022-05-18 03:28] LABS: Troponin I High Sensitivity 732.8 pg/ml (0-20)
[2022-05-18 03:30] LABS: BUN Creatinine Ratio 18.3 (10-20); Calcium 8.4 mg/dl (8.5-10.1); Chol HDL Ratio 3.2 (0-5); Creatinine Clr Calc Pharmacy 108.5 ml/min; Est GFR (African American) 114.9 ml/min; Est GFR (Non-African American) 99.2 ml/min; Potassium 4.2 mmol/L (3.5-5.1)
[2022-05-18 05:33] LABS: Basophils # (auto) 0.05 K/uL (0-0.2); Basophils % (auto) 0.9 %; Eosinophils # (auto) 0.16 K/uL (0-0.50); Eosinophils % (auto) 2.9 %; Hematocrit (blood only) 38.4 % (40.1-51.0); Hemoglobin 13.1 g/dl (14.0-18.0); Immature Granulocytes # (auto) 0.01 K/uL (0.00-0.02); Immature Granulocytes % (auto) 0.2 %; Lymphocytes # (auto) 1.19 K/uL (1.2-3.4); Lymphocytes % (auto) 21.4 %; Mean Corpuscular Hemoglobin 31.3 pg (25.0-34.0); Mean Corpuscular Hgb Conc 34.1 g/dL (32.0-36.0); Mean Corpuscular Volume 91.6 fL (80.0-100.0); Mean Platelet Volume 9.6 fL (9.4-12.4); Monocytes # (auto) 0.37 K/uL (0.24-0.82); Monocytes % (auto) 6.7 %; Neutrophils # (auto) 3.77 K/uL (1.4-6.5); Neutrophils % (auto) 67.9 %; Platelet Count 259 K/uL (130-400); RDW Coefficient of Variation 13.8 % (11.5-14.5); RDW Standard Deviation 46.2 fL (36.4-46.3); Red Blood Count 4.19 M/uL (4.63-6.08); White Blood Count 5.55 K/ul (4.8-10.8)
[2022-05-18 05:59] LABS: Calcium 8.3 mg/dl (8.5-10.1); Creatinine Clr Calc Pharmacy 122.3 ml/min; Est GFR (African American) 120.7 ml/min; Est GFR (Non-African American) 104.1 ml/min; Magnesium 1.9 mg/dl (1.7-2.4); Phosphorus 3.2 mg/dl (2.5-4.9); Potassium 3.8 mmol/L (3.5-5.1)
[2022-05-18] MEDS: HEPARIN SODIUM/DEXTROSE 25,000 UNITS/500 ML BAG IV SCH ×2 (06:08→21:06)
[2022-05-18 06:37] LABS: Partial Thromboplastin Time 28.3 Seconds (21.0-31.0)
[2022-05-18] MEDS ORDERED: POTASSIUM CHLORIDE CRTAB 20 MEQ TABCR PO STA (06:49)
--- NOTE | 2022-05-18 06:55 | XRay Report ---
SINGLE VIEW CHEST CLINICAL HISTORY: Atypical chest pain. FINDINGS: 2 AP, portable, upright chest radiographs are obtained. No prior studies are available for comparison at the time of dictation. The cardiomediastinal silhouette is unremarkable. There is mild elevation of the right hemidiaphragm. The lungs and pleural spaces are clear. No pneumothorax is seen . The bony thorax is grossly intact. IMPRESSION: No acute cardiopulmonary abnormality is identified. ACT 112: Negative or not required by law. Electronically signed by: Sunny Carpenter M.D. 05/18/2022 6:53 AM
[2022-05-18 07:13] LABS: Estimated Average Glucose 97 mg/dl
[2022-05-18] MEDS: Heparin IV Adult Wt-Based Standard *NO* Bolus Protocol IV SCH ×2 (07:23→07:24)
[2022-05-18] MEDS: ICU Protocol for HYPERglycemia SCH ×3 (07:35→17:20)
[2022-05-18] MEDS: DOCUSATE SODIUM 100 MG CAP PO SCH ×2 (07:35→21:06)
[2022-05-18] MEDS: METOPROLOL TARTRATE 25 MG TAB PO SCH ×2 (07:35→21:06)
[2022-05-18] MEDS: PANTOprazole 40 MG TAB PO SCH (07:35)
[2022-05-18] MEDS: ASPIRIN 81 MG ECTAB PO SCH (07:35)
[2022-05-18] MEDS: ATORVASTATIN 40 MG TAB PO SCH (07:35)
[2022-05-18] MEDS: MAGNESIUM SULFATE / D5W 1 GM/100 ML BAG IV SCH ×2 (07:35→09:20)
--- NOTE | 2022-05-18 10:14 | XCELERA ---
[id number]
--- NOTE | 2022-05-18 12:56 | Electrocardiogram Report ---
Test Reason : Blood Pressure : / mmHG Vent. Rate : 078 BPM Atrial Rate : 078 BPM P-R Int : 188 ms QRS Dur : 088 ms QT Int : 392 ms P-R-T Axes : 059 -21 064 degrees QTc Int : 446 ms Poor data quality, interpretation may be adversely affected Normal sinus rhythm Inferior infarct , age undetermined T wave abnormality, consider anterior ischemia Abnormal ECG No previous ECGs available Confirmed by Antolin Paulino ([id number]) on 05/18/2022 12:56:49 PM Referred By: REFERRED SELF Confirmed By:Hector Paulino
--- NOTE | 2022-05-18 12:57 | Electrocardiogram Report ---
Test Reason : Blood Pressure : / mmHG Vent. Rate : 079 BPM Atrial Rate : 079 BPM P-R Int : 180 ms QRS Dur : 090 ms QT Int : 366 ms P-R-T Axes : 056 -15 070 degrees QTc Int : 419 ms Normal sinus rhythm Cannot rule out Inferior infarct (cited on or before 17-MAY-2022) Anterior injury pattern ACUTE [place] / STEMI Abnormal ECG When compared with ECG of 17-MAY-2022 22:16, (unconfirmed) ST elevation now present in Anterior leads Confirmed by Antolin aPulino ([id number]) on 05/18/2022 12:57:14 PM Referred By: REFERRED SELF Confirmed By:Hector Paulino
[2022-05-18 13:01] LABS: Partial Thromboplastin Ratio 2.4
--- NOTE | 2022-05-18 13:01 | Electrocardiogram Report ---
Test Reason : Blood Pressure : / mmHG Vent. Rate : 079 BPM Atrial Rate : 079 BPM P-R Int : 194 ms QRS Dur : 088 ms QT Int : 398 ms P-R-T Axes : 059 -27 099 degrees QTc Int : 456 ms Normal sinus rhythm Inferior infarct (cited on or before 17-MAY-2022) Abnormal ECG When compared with ECG of 17-MAY-2022 23:33, (unconfirmed) Evolution of acute NH Confirmed by Antolin Paulino ([id number]) on 05/18/2022 1:01:36 PM Referred By: REFERRED SELF Confirmed By:Hector Paulino
[2022-05-18 13:11] LABS: Partial Thromboplastin Time 66.1 Seconds (21.0-31.0)
--- NOTE | 2022-05-18 15:03 | History & Physical Report ---
Date of Service May 18, 2022 Assessment & Plan (1) ST elevation [place] (STEMI): Plan: Patient presented to the ER with above problem. Severe disease near the apex in the LAD noted in cardiac cath. Patient will continue on heparin drip. high sensitivity Trop: 918 (pea) now downtrending continue aspirin, metoprolol Will require transfer to tertiary center for CABG (2) Ischemic cardiomyopathy: Plan: decreased EF on echo, with wall motion abnormlaities currently will hold off add SIMON inhibitor or entresto until after revascularization completed at tertiary center (3) Hypertension: Plan: continue beta gregory, above goal, will monitor Admission and Anticipated Discharge Date Admission Date: May 18, 2022 History of Present Illness Chief Complaint: chest pain Primary Care Provider: JORGE Preciado This is a pleasant 66 yo male who is being admitted for chest pain. Patient went to the ER and was a heart alert. Patient reports pressure like nature in his chest with bilateral arm pain. Pain was intermittent, it was ongoing for past fe days, but getting worse. When patient arrived to the ED, patient had ST changes on anterior leads. Cardiology was consulted. Allergies Allergy/AdvReac Type Severity Reaction Status Date / Time No Known Allergies Allergy Verified 05/06/19 09:56 Home Medications Medication Instructions Recorded Confirmed Type ascorbic acid (vitamin C) 1,000 mg 1,000 mg PO Q12H 04/10/19 05/06/19 History tablet,extended release cephalexin 500 mg capsule 500 mg PO TID 7 days #21 caps 04/10/19 05/06/19 Rx finasteride 5 mg tablet 5 mg PO DAILY 04/10/19 05/06/19 History ibuprofen 200 mg tablet 200 mg PO Q6H PRN 04/10/19 05/06/19 History oxybutynin chloride 10 mg 10 mg PO DAILY 04/10/19 05/06/19 History tablet,extended release 24 hr psyllium seed (sugar) oral powder 1 tbs PO DAILY 04/10/19 05/06/19 History (Metamucil [place] oral powder) triamcinolone acetonide 0.1 % 1 appln topical BID #80 grams 04/10/19 05/06/19 Rx topical ointment aspirin 81 mg tablet,delayed 81 mg PO QAM #30 tabs 05/18/22 Rx release Past Med/Surg History Medical History Family history of heart disease Hypertension Surgical History No significant past surgical history Family History Other Colorectal cancer Diabetes Hypertension Social History Smoking Status: Former smoker Tobacco Type: Cigarettes Hx Alcohol Use: No Hx Substance Use: No Preferred Language: Thai 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 Ability: Effective Warehouse Processor Required: No Beliefs That Will Affect Care: None Current Living Situation: Alone Current Living Situation Comment: [facility] Feels Safe at Home: Yes Assistive Devices: Cane Review of Systems Constitutional: no fever and no body aches Eyes: no blind spots Ear, Nose, Mouth, Throat: no ear pain Respiratory: + dyspnea Cardiovascular: + chest pain Gastrointestinal: no abdominal pain Genitourinary: no dysuria Musculoskeletal: no back pain Integumentary: no acne Neurologic: no gait abnormality Psychiatric: no behavioral changes Endocrine: + fatigue Hematologic / Lymphatic: no easy bleeding Allergy / Immunological: no GI upset with certain foods Physical Exam Constitutional: WD/WN, vitals as above Eyes: PERRL, conjunctivae normal, anicteric sclerae ENMT: external ear and nose normal, oropharynx normal Neck: trachea midline, no thyromegaly Respiratory: normal respiratory effort, lungs clear to auscultation Cardiovascular: RRR, no murmur, no edema Gastrointestinal (Abdomen): normal bowel sounds, soft, nontender, no hepatosplenomegaly Musculoskeletal: no cyanosis or clubbing, extremities motor strength 5/5 Skin: no rashes, warm and dry Neurologic: PERRL, EOMI, accommodation nl, no face palsy, no dysarthria Psychiatric: A+Ox3, euthymic affect Lymphatic: no cervical or axillary lymphadenopathy Results & Data Results & Data ([facility]) Vital Signs (Past 12 Hours) Vital Signs Temp Pulse Pulse Resp BP BP Pulse Ox 05/18/22 11:28 76 05/18/22 09:00 76 19 96 05/18/22 09:00 100/62 05/18/22 08:00 75 18 96 05/18/22 08:00 111/58 L 05/18/22 07:00 76 96 05/18/22 07:00 107/67 05/18/22 06:45 71 16 95 05/18/22 08:00 81 05/18/22 06:00 81 17 96 05/18/22 06:00 108/67 05/18/22 05:50 81 19 95 05/18/22 05:40 76 17 95 05/18/22 05:30 78 18 92 05/18/22 06:00 73 12 108/67 94 05/18/22 05:20 76 18 94 05/18/22 05:10 80 16 96 05/18/22 05:00 77 14 96 05/18/22 05:00 115/65 05/18/22 04:50 94 H 24 95 05/18/22 04:40 80 15 94 05/18/22 04:30 82 16 96 05/18/22 04:20 76 18 94 05/18/22 04:10 80 23 94 05/18/22 04:00 74 20 93 05/18/22 04:00 99/61 L 05/18/22 03:50 78 16 95 05/18/22 03:45 97/58 L 05/18/22 03:45 85 17 95 05/18/22 03:40 88 17 96 05/18/22 03:30 80 20 95 05/18/22 03:30 97/62 L 05/18/22 03:20 81 21 93 05/18/22 03:15 110/64 05/18/22 03:15 80 15 95 05/18/22 03:10 83 20 94 05/18/22 05:00 36.5 C O2 Del Method 05/18/22 11:28 05/18/22 09:00 05/18/22 09:00 05/18/22 08:00 05/18/22 08:00 05/18/22 07:00 05/18/22 07:00 05/18/22 06:45 05/18/22 08:00 05/18/22 06:00 05/18/22 06:00 05/18/22 05:50 05/18/22 05:40 05/18/22 05:30 05/18/22 06:00 Room Air 05/18/22 05:20 05/18/22 05:10 05/18/22 05:00 05/18/22 05:00 05/18/22 04:50 05/18/22 04:40 05/18/22 04:30 05/18/22 04:20 05/18/22 04:10 05/18/22 04:00 05/18/22 04:00 05/18/22 03:50 05/18/22 03:45 05/18/22 03:45 05/18/22 03:40 05/18/22 03:30 05/18/22 03:30 05/18/22 03:20 05/18/22 03:15 05/18/22 03:15 05/18/22 03:10 05/18/22 05:00 Code Status & VTE Plan VTE Prophylaxis Plan VTE Prophylaxis will be ordered: Yes PG Care Time/CCT Total # of Minutes Spent Total Time Spent with Patient: Total time spent is greater than 50% in coordination of care (as documented) at patient's floor/unit and/or counseling patient: Coding Level of Care Code 01939 Initial Inpt Care Lvl [address] elevation TX (STEMI) I21.3 Ischemic cardiomyopathy I25.5 Hypertension I10
--- NOTE | 2022-05-18 16:01 | Cardiology Progress Note ---
Date of Service May 18, 2022 Assessment & Plan (1) Ischemic cardiomyopathy: Plan: Severe multivessel coronary disease. Mild to moderate LV systolic dysfunction (chronic). No evidence of volume overload at this time. Needs revascularization. Heart rate and blood pressure are currently well controlled. Continue metoprolol. Consider SIMON inhibitor/ARB/Entresto (cost may be an issue) but will wait until after surgery or PCI. Some surgeons prefer to hold these agents perioperatively. Furthermore, EF is reasonably well-preserved and therefore he does not have an absolute indication for these agents. (2) Coronary artery disease: Plan: Severe multivessel. Blood pressure and heart rate are currently at target. Guideline directed medical therapy with low-dose aspirin, high intensity statin therapy, and beta-gregory. He will remain on heparin drip for now. Sublingual nitroglycerin as needed for anginal relief. Has not required a nitroglycerin drip. (3) Atherogenic dyslipidemia: Plan: High risk. High intensity statin therapy is recommended. Target LDL reduction of greater than or equal to 50% of untreated baseline LDL. Currently on a atorvastatin 40 mg daily. (4) Hypertension: Plan: Blood pressure is at target. Continue metoprolol tartrate 25 mg p.o. twice daily. Nitroglycerin as needed. Additional titration of regimen pending evolution of his clinical course. Plan Patient has been accepted for transfer to [facility] in [place] for heart team evaluation and revascularization. Awaiting bed assignment. Admission and Anticipated Discharge Date Admission Date: May 18, 2022 Subjective Patient is feeling well this morning. He is seen in the ICU. No further anginal symptoms. No pain at the radial artery access site. No arrhythmia or other events overnight. I discussed with him his home situation. 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 He has a brother who can sometimes provide him with a ride. Patient has followed with a midlevel provider for his primary care needs but not regularly. We discussed recommendation for cardiac surgical evaluation given the extent of his severe coronary disease. We also discussed that should he not be a good surgical candidate (questionable quality of target vessels for bypass as well as a viability in the LAD dependent to myocardium) then complex multivessel PCI may be an option. I explained that his best outcome would be determined by a "heart team" evaluation. I also informed him that he would be best served by having a warning analyst in [place] which would improve his likelihood of follow-up, etc. I discussed with Dr. Beach who says that he would be happy to see him in [place]. I personally reviewed the echocardiogram this morning which demonstrated mildly to moderately reduced EF of 40 to 45%. Multiple wall motion abnormalities including severe hypokinesis to akinesis of the distal LAD territory myocardium/apex. This likely explains the ST elevations in the anterior leads without ischemic reciprocal changes. His troponin was modestly elevated compared to the severity of his coronary disease. He seemed to understand this to some degree and was interested in revascularization as soon as possible. He voices no other complaints. Review of Systems Review of Systems: Negative except as per HPI Physical Exam Constitutional: WD/WN, vitals as above Neck: No JVD Respiratory: Clear to auscultation bilaterally. No wheezing, rhonchi, or rales. Cardiovascular: RRR, no murmur, no edema (S4 gallop) Gastrointestinal (Abdomen): normal bowel sounds, soft, nontender, no hepatosplenomegaly Normal active bowel sounds. Musculoskeletal: no cyanosis or clubbing, extremities motor strength 5/5 (Right radial access site is clean dry and intact.) Neurologic: Cognition is intact. Speech is fluent. No focal deficits. Psychiatric: A+Ox3, euthymic affect Results & Data ([facility]) Vital Signs (Past 12 Hours) Vital Signs Temp Pulse Pulse Resp BP BP Pulse Ox 05/18/22 15:14 76 05/18/22 11:28 76 05/18/22 09:00 76 19 96 05/18/22 09:00 100/62 05/18/22 08:00 75 18 96 05/18/22 08:00 111/58 L 05/18/22 07:00 76 96 05/18/22 07:00 107/67 05/18/22 06:45 71 16 95 05/18/22 08:00 81 05/18/22 06:00 81 17 96 05/18/22 06:00 108/67 05/18/22 05:50 81 19 95 05/18/22 05:40 76 17 95 05/18/22 05:30 78 18 92 05/18/22 06:00 73 12 108/67 94 05/18/22 05:20 76 18 94 05/18/22 05:10 80 16 96 05/18/22 05:00 77 14 96 05/18/22 05:00 115/65 05/18/22 04:50 94 H 24 95 05/18/22 04:40 80 15 94 05/18/22 04:30 82 16 96 05/18/22 04:20 76 18 94 05/18/22 04:10 80 23 94 05/18/22 04:00 74 20 93 05/18/22 04:00 99/61 L 05/18/22 05:00 36.5 C O2 Del Method 05/18/22 15:14 05/18/22 11:28 05/18/22 09:00 05/18/22 09:00 05/18/22 08:00 05/18/22 08:00 05/18/22 07:00 05/18/22 07:00 05/18/22 06:45 05/18/22 08:00 05/18/22 06:00 05/18/22 06:00 05/18/22 05:50 05/18/22 05:40 05/18/22 05:30 05/18/22 06:00 Room Air 05/18/22 05:20 05/18/22 05:10 05/18/22 05:00 05/18/22 05:00 05/18/22 04:50 05/18/22 04:40 05/18/22 04:30 05/18/22 04:20 05/18/22 04:10 05/18/22 04:00 05/18/22 04:00 05/18/22 05:00 PG Care Time/CCT Total # of Minutes Spent Total Time Spent with Patient: Total time spent is greater than 50% in coordination of care (as documented) at patient's floor/unit and/or counseling patient: Prolonged Care Time Prolonged Care Time: Yes Total Prolonged Care Time: 60 I spent 60 minutes in review of records, examination of the patient, discussion with physicians here as well as with [facility] regarding transfer, formulation, coordination, and implementation of a plan of care, and documentation of all of the above. [place] [address] Subseq Hosp Care Lvl 3 Patient Type Established Diagnoses Ischemic cardiomyopathy I25.5 Coronary artery disease I25.10 Atherogenic dyslipidemia E78.5 Hypertension I10 Additional Codes Prolonged Care Time - Prolonged Care Time: Yes ([id number])
[2022-05-19 05:32] LABS: Basophils # (auto) 0.05 K/uL (0-0.2); Basophils % (auto) 0.7 %; Eosinophils # (auto) 0.51 K/uL (0-0.50); Hematocrit (blood only) 38.4 % (40.1-51.0); Immature Granulocytes # (auto) 0.02 K/uL (0.00-0.02); Immature Granulocytes % (auto) 0.3 %; Lymphocytes # (auto) 2.19 K/uL (1.2-3.4); Lymphocytes % (auto) 30.1 %; Mean Corpuscular Hemoglobin 31.6 pg (25.0-34.0); Mean Corpuscular Hgb Conc 33.9 g/dL (32.0-36.0); Mean Corpuscular Volume 93.2 fL (80.0-100.0); Mean Platelet Volume 9.8 fL (9.4-12.4); Monocytes % (auto) 9.6 %; Neutrophils # (auto) 3.81 K/uL (1.4-6.5); Neutrophils % (auto) 52.3 %; Platelet Count 239 K/uL (130-400); RDW Coefficient of Variation 14.1 % (11.5-14.5); RDW Standard Deviation 48.3 fL (36.4-46.3); Red Blood Count 4.12 M/uL (4.63-6.08); White Blood Count 7.28 K/ul (4.8-10.8)
[2022-05-19 06:01] LABS: Partial Thromboplastin Ratio 4.5
[2022-05-19 06:03] LABS: Partial Thromboplastin Time 122.7 Seconds (21.0-31.0)
[2022-05-19 06:05] LABS: BUN Creatinine Ratio 19.2 (10-20); Calcium 8.5 mg/dl (8.5-10.1); Creatinine Clr Calc Pharmacy 105.6 ml/min; Est GFR (African American) 113.6 ml/min; Magnesium 2.1 mg/dl (1.7-2.4); Potassium 4.3 mmol/L (3.5-5.1)
[2022-05-19] MEDS: DOCUSATE SODIUM 100 MG CAP PO SCH ×2 (08:14→19:58)
[2022-05-19] MEDS: PANTOprazole 40 MG TAB PO SCH (08:14)
[2022-05-19] MEDS: ATORVASTATIN 40 MG TAB PO SCH (08:14)
[2022-05-19] MEDS: ASPIRIN 81 MG ECTAB PO SCH (08:15)
[2022-05-19] MEDS: METOPROLOL TARTRATE 25 MG TAB PO SCH ×2 (08:16→19:58)
[2022-05-19] MEDS ORDERED: FINASTERIDE 5 MG TAB PO SCH (09:00)
--- NOTE | 2022-05-19 13:12 | Hospitalist Progress Note ---
Date of Service May 19, 2022 Assessment & Plan (1) ST elevation PR (STEMI): Plan: Patient presented to the ER with above problem. Severe disease near the apex in the LAD noted in cardiac cath. Patient currently on heparin drip. Troponin now downtrending. Continue aspirin, metoprolol (2) Ischemic cardiomyopathy: Plan: decreased EF on echo, with wall motion abnormlaities. Currently will hold off add SIMON inhibitor or entresto until after revascularization completed at tertiary center (3) Hypertension: Plan: continue beta gregory. Controlled Plan Discharge to [facility] when arrangements are finalized for coronary artery bypass grafting Admission and Anticipated Discharge Date Admission Date: May 18, 2022 Subjective Alert and oriented. No recurrent chest discomfort. He remains on a heparin drip along with other cardiac medications. He is currently stable. He is awaiting transfer to [facility] in [place] for coronary artery bypass grafting. Review of Systems Review of Systems: Constitutional-no fever or chills ENT-no blurred vision, no double vision, no epistaxis, no sore throat Respiratory-no cough, no wheezing, no shortness of breath Cardiac-no palpitations, no chest pain, no syncope GI-no nausea, vomiting, diarrhea, melena, hematochezia -no urinary retention, no urinary incontinence, no dysuria, no hematuria Musculoskeletal-no joint pain, no muscle tenderness Skin-no bruising, no rashes, no pruritus Neuro-no isolated weakness, no paresthesia, no weakness Psych-no depression, no anxiety Physical Exam Physical Exam: General-alert and oriented x3, no fevers, no chills HEENT-head atraumatic and normocephalic, pupils equal and reactive to light, extraocular muscles intact Neck-no lymphadenopathy or thyromegaly, trachea midline Chest-clear to auscultation percussion. No rales wheezing or rhonchi Cardiac-regular rate and rhythm, normal S1 and S2 Abdomen-normal bowel sounds, nontender, no hepatosplenomegaly Extremities-no cyanosis, clubbing, or edema Neuro-cranial nerves II through XII intact, motor and sensory function within normal limits, strength symmetrical , no focal deficits Psych-normal affect, normal mood Results & Data Results & Data ([facility]) Vital Signs (Past 12 Hours) Vital Signs Temp Pulse Pulse Resp BP BP Pulse Ox 05/19/22 11:47 36.3 C L 52 L 16 122/73 93 05/19/22 07:48 36.3 C L 56 L 18 118/69 95 05/19/22 04:00 48 L 15 94 05/19/22 03:00 53 L 10 L 94 05/19/22 02:00 53 L 0 L 95 05/19/22 02:00 98/61 L O2 Del Method 05/19/22 11:47 Room Air 05/19/22 07:48 Room Air 05/19/22 04:00 05/19/22 03:00 05/19/22 02:00 05/19/22 02:00 Laboratory Results 05/19/22 05:05 05/19/22 05:05 PG Care Time/CCT Total # of Minutes Spent Total Time Spent with Patient: Total time spent is greater than 50% in coordination of care (as documented) at patient's floor/unit and/or counseling patient: Coding Level of Care Code 31824 Subseq Hosp Care Lvl [address] elevation PR (STEMI) I21.3 Ischemic cardiomyopathy I25.5 Hypertension I10
--- NOTE | 2022-05-19 13:15 | Discharge Summary ---
Date of Service May 19, 2022 Admission HPI Per Admitting Provider This is a pleasant 66 yo male who is being admitted for chest pain. Patient went to the ER and was a heart alert. Patient reports pressure like nature in his chest with bilateral arm pain. Pain was intermittent, it was ongoing for past fe days, but getting worse. When patient arrived to the ED, patient had ST changes on anterior leads. Cardiology was consulted. Principal Diagnosis Acute anterior wall AL Discharge Exam General-alert and oriented x3, no fevers, no chills HEENT-head atraumatic and normocephalic, pupils equal and reactive to light, extraocular muscles intact Neck-no lymphadenopathy or thyromegaly, trachea midline Chest-clear to auscultation percussion. No rales wheezing or rhonchi Cardiac-regular rate and rhythm, normal S1 and S2 Abdomen-normal bowel sounds, nontender, no hepatosplenomegaly Extremities-no cyanosis, clubbing, or edema Neuro-cranial nerves II through XII intact, motor and sensory function within normal limits, strength symmetrical , no focal deficits Psych-normal affect, normal mood Discharge Data Allergies Allergy/AdvReac Type Severity Reaction Status Date / Time No Known Allergies Allergy Verified 05/06/19 09:56 Consultations 05/18/22 00:39 Consult Rubber Compounder Mixer Routine 05/18/22 00:53 Consult Rubber Compounder Mixer Stat 05/18/22 18:37 Burn CD for patient Stat Procedures Performed Operation Date: 05/18/22 00:15 Actual Procedures s Cineradiography w/Routine Exam - Bo Gómez MD, PhD p Cath, Coronaries ONLY (no LV) - Bo Gómez MD, PhD Ordered Studies 05/17/22 23:58 CL Cath Imgs for PACS use only Stat Hospital Course (1) ST elevation AL (STEMI): Patient presented to the ER with above problem. Severe disease near the apex in the LAD noted in cardiac cath. Patient currently on heparin drip. Troponin now downtrending. Continue aspirin, metoprolol (2) Ischemic cardiomyopathy: decreased EF on echo, with wall motion abnormlaities. Currently will hold off add SIMON inhibitor or entresto until after revascularization completed at tertiary center (3) Hypertension: continue beta gregory. Controlled Plan Discharge to [facility] when arrangements are finalized for coronary artery bypass grafting Total Time Total Time Spent Total Time Spent (In Minutes): 40 minutes Discharge Plan Discharge Items Patient Disposition: Transfer Acute Care Hospital Reason For Visit: STEMI Discharge Diagnosis: STEMI Activity: Resume your previous activity Non-emergency contact: Primary Care Provider Call non-emergency contact if: you have any medication questions Follow-up/Referrals: Linda Wilks CRNP [Primary Care Provider] - Diet: Heart Healthy Addtl Attending Provider Instructions: Transfer for possible CABG Continue IV heparin Pending Studies at Discharge: No Stand-Alone Forms: [facility] Skilled Items Patient informed of condition?: Yes DNR: No Discharge Level of Care: Other Communicable Disease: No Discharge Prognosis: Stable Lines: Peripheral IV Urinary Catheter: No Medications and DC Order Prescriptions: New aspirin 81 mg Tablet,Delayed Release (Dr/Ec) 81 mg PO QAM Qty: 30 0RF docusate sodium 100 mg Capsule 100 mg PO BID Qty: 30 0RF pantoprazole 40 mg Tablet,Delayed Release (Dr/Ec) 40 mg PO QAM Qty: 30 0RF atorvastatin 40 mg Tablet 40 mg PO QAM Qty: 30 0RF metoprolol tartrate 25 mg Tablet 25 mg PO BID Qty: 30 0RF Continued finasteride 5 mg tablet 5 mg PO DAILY oxybutynin chloride 10 mg tablet extended release 24hr 10 mg PO DAILY ascorbic acid (vitamin C) 1,000 mg tablet extended release 1,000 mg PO Q12H triamcinolone acetonide 0.1 % ointment 1 appln TOP BID Qty: 80 0RF Rx Instructions: Apply to areas of the trunk and extremities twice daily x 2 weeks. Do not use on face. Discontinued ibuprofen 200 mg tablet 200 mg PO Q6H PRN Metamucil [place] powder 1 tbs PO DAILY cephalexin 500 mg capsule 500 mg PO TID 7 Days Qty: 21 0RF Discharge Orders: Discharge Order (Routine); Ordered 05/19/22 Ordered By: Manas Schumacher Admission Data Admit Date/Time: 05/18/22 00:39 Attending Provider: Manas Schumacher Admit Provider: Bo Gómez Primary Care Provider: Linda Wilks Other Providers: Martita Sidhu ; Noris Clifton I. ; Gui Marie ; Jesús Ledesma ; Corazon Gaxiola ; Adilene Herrera ; Zoey Martínez ; Darrell Li ; Boni Tucker ; Juice Ulrich ; Ashley Sullivan ; Mike Hollins ; Josefa Lee ; Jasmina Barajas ; Steve Burleson ; Ale Beyer ; Una Moreno ; Dez Barrios ; Lilly Taveras I. ; Alexis Haley ; Dar Copeland ; Deangelo Chamberlain ; Muriel Guillaume ; Dylon Stanley ; [employer] ; Kong Rosa ; Everardo Yuan ; Tana Owens ; Sunny Jean ; Jake Sullivan ; Chilango Hare ; Gordo Stewart ; Edmar Meyer ; Derick Foster ; Carol Chin ; Gianfranco Suarez ; Fatimah Jarrell Coding Level of Care Code D/C DAY MANAGEMENT >[address] elevation AL (STEMI) I21.3 Ischemic cardiomyopathy I25.5 Hypertension I10
[2022-05-19 15:16] LABS: Partial Thromboplastin Ratio 2.1
[2022-05-19 15:47] LABS: Partial Thromboplastin Time 58.1 Seconds (21.0-31.0)
[2022-05-19] MEDS: HEPARIN SODIUM/DEXTROSE 25,000 UNITS/500 ML BAG IV SCH (17:49)
== END 2022-05-19 22:00 | disposition short-term general hospital (02) | DRG 282 ==
LOC: ED 22:11 → CC 05-18 00:10 → SUATTDRO 05-18 00:39 → 1E 05-18 00:39 → 2S 05-19 05:59
PROC: CLB.CCO (2022-05-18 00:15)